=== PATIENT | female | born 1970 | race Caucasian/White ===

== ENCOUNTER 2022-08-13 09:12 | Outpatient (CLI) | payer OTHER, SELFPAY ==
[2022-08-13 09:49] LABS: Basophils Percent Auto 1.2 % (0.0-3.0); Eosinophils Percent Auto 4.1 % (0.0-7.0); Hemoglobin* 13.7 gm/dL (12.0-16.0); Lymphocytes Percent Auto 38.2 % (20-44); Mean Corpuscular HGB Conc 33 gm/dL (32-36); Mean Corpuscular Hemoglobin 32 pg (26-34); Mean Corpuscular Volume 97 fL (80-100); Monocytes Percent Auto 11.2 % (0.0-11.0); Neutrophils Percent Auto 45.3 % (42.0-72.0); Platelet Count* 303 K/uL (140-440); RDW Coefficient of Variation % 14.3 % (11.5-15.5); Red Blood Count 4.24 m/uL (4.00-5.20); White Blood Count* 2.41 K/uL (4.50-11.00)
[2022-08-13 09:50] LABS: Slide Review Reflex No
[2022-08-13 10:04] LABS: Albumin* 4.4 g/dL (3.3-5.0); Chloride* 104 mmol/L (96-114); Sodium* 139 mmol/L (135-149)
[2022-08-13 10:05] LABS: Potassium* 3.9 mmol/L (3.6-5.1)
[2022-08-13 10:07] LABS: Alanine Aminotransferase* 23 U/L (4-35); Alkaline Phosphatase* 60 U/L (40-150); Aspartate Amino Transferase* 27 U/L (12-35); Bilirubin Total* 0.4 mg/dL (0.1-1.5); Blood Urea Nitrogen* 10 mg/dL (7-30); Carbon Dioxide* 29 mmol/L (20-32); Creatinine* 0.9 mg/dL (0.5-1.5); Estimated Glomerular Filt Rate 76 ml/min; Glucose* 91 mg/dL (60-115); Phosphorus* 4.8 mg/dL (2.5-4.5); Total Protein* 7.7 g/dL (6.0-8.3)
[2022-08-13 10:08] LABS: Calcium* 9.7 mg/dL (8.4-10.6)
== END 2022-08-13 09:13 | disposition home or self-care (01) ==
DX: C50.912 Malignant neoplasm of unspecified site of left female breast (principal)
CPT/HCPCS: 36415; 80053; 84100; 85025